=== PATIENT | female | born 1955 | race Caucasian/White ===

== ENCOUNTER 2017-08-28 13:16 | Outpatient (CLI) | payer BC ==
[2017-08-28 14:46] LABS: Hemoglobin 13.4 g/dL (12.0-16.0); Mean Corpuscular HGB CONC 33.9 g/dL (32.0-36.0); Mean Corpuscular Hemoglobin 32.1 pg (27.0-31.0); Mean Corpuscular Volume 94.9 fl (81.0-99.0); Mean Platelet Volume 8.3 fL (7.4-10.4); Platelet Count 182 thou/uL (130-400); RBC Distribution Width 12.3 % (11.5-14.5); Red Blood Cell (RBC) Count 4.16 mill/uL (4.20-5.40)
[2017-08-28 15:08] LABS: PTT 24.7 SEC (22.9-36.1); Prothrombin Time 12.8 SEC (12.0-14.7)
[2017-08-28 15:10] LABS: Anion Gap 10 mmol/L (10-20); BUN (Urea Nitrogen) 14 mg/dL (9.8-20.1); Calc. Creatinine Clearance 0 mL/min (70-130); Calcium 9.3 mg/dL (7.8-10.44); Carbon Dioxide 29 mmol/L (23-31); Chloride 105 mmol/L (98-107); Estimated GFR-MDRD 84; Glucose 80 mg/dL (80-115); Potassium 4.3 mmol/L (3.5-5.1); Sodium 140 mmol/L (136-145)
== END 2017-08-28 13:17 | disposition home or self-care (01) ==
LOC: LABBT 13:16
PROVIDERS: ATTEND Internal Medicine Cardiovascular Disease
DX: Z01.818 Encounter for other preprocedural examination (principal); I47.1 Supraventricular tachycardia
CPT/HCPCS: 80048; 85027; 85610; 85730; 93005; 93010

== ENCOUNTER → 2017-09-04 | Day surgery (SDC) | payer BC ==
[2017-08-28 13:37] VITALS: BMI 27.6
[~2017-09-04] MED LIST: Heparin 10,000 UNITS/1 ML VIAL ONE; Isoproterenol 0.2 MG/1 ML AMP ONE; Lidocaine 1% (PF) 30 ML VIAL ONE; Propofol 1,000 MG/100 ML VIAL IV ONE
--- NOTE | 2017-09-04 13:29 | OP ---
DATE OF PROCEDURE: 09/04/2017 ELECTROPHYSIOLOGY STUDY AND RADIOFREQUENCY ABLATION REFERRING PHYSICIAN: REASON FOR PROCEDURE: Paroxysmal supraventricular tachycardia. PROCEDURE: The patient received deep sedation with Anesthesia specialist. After adequate general sedation achieved, the left femoral venous area and the right femoral venous area was prepped and draped and anesthetized with subcutaneous lidocaine. With ultrasound guidance, a 6 and 8 Austrian short sheath was introduced on the left side and an 8 Austrian short sheath on the right femoral venous area. Through the left-sided access, a Decapolar an octapolar catheter was entered through the right atrium, His bundle, right ventricle also to the CS position. Pacing mapping and recording was performed in each location. During the burst pacing and extrastimulus testing we were able to induce a narrow complex supraventricular tachycardia with a baseline cycle length of 360 milliseconds with a very short VA conduction consistent with AV desire reentry tachycardia. With overdrive pacing entering the tachycardia and on stopping the pacing VA response was seen ruling out atrial tachycardia as the origin. The initiation of the tachycardia also was observed with excess to my testing with AV jump, indicating AV desire oriented tachycardia. Following that a 4 mm regular ablation catheter was then inserted in the right atrium and the right atrial map assessing this bundle map and CS map was obtained. The cough triangle was clearly delineated in the slow pathway area. Cautery was then used for about 90 seconds which admitted inducibility of AV node reentry tachycardia. No AV jump was observed. At this point, the isuprel was administered at 4 mcg per minute for about 10 minutes and repeated burst atrial pacing did not reinduce the arrhythmia. During the ablation, clear junctional rhythm was seen. The numerical findings; baseline cycle length sinus rhythm 907 milliseconds, IN 155, QRS 60, QT 401, AH 112, HV 46 milliseconds. AV Wenckebach cycle length was about 360 milliseconds. VA Wenckebach cycle length was 350 milliseconds. AV desire ERP was measured to 640 milliseconds with an AV jump was observed after which actually AV desire oriented tachycardia was induced. With VA pacing concentric retrograde ventricular activation was seen. After ablation, the HV interval did not change. The AV Wenckebach cycles was 340 milliseconds. AV desire ERP 16/250 milliseconds with no obvious dual AV desire physiology seen after the ablation. Also burst atrial pacing that reduced the SVT. At the end of the case isuprel was stopped. The cardiac silhouette was checked on the end, which appears to have been unchanged. The patient tolerated the procedure well, no complication noted. The catheters were removed and the sheaths as well. Local pressure was used for hemostasis. CONCLUSION: 1. 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 2. Slow pathway ablation eliminates the inducibility AV desire reentrant tachycardia as well as the dual AV desire physiology. PLAN: Reduce the AV desire blocking agents as tolerated and routine followup. MTDD
== END ==
LOC: CCL 08:49
PROVIDERS: ATTEND Internal Medicine Cardiovascular Disease
DX: I47.1 Supraventricular tachycardia (principal); Z88.1 Allergy status to other antibiotic agents; Z79.82 Long term (current) use of aspirin; Z79.899 Other long term (current) drug therapy
CPT/HCPCS: 76942; 93613; 93623; 93653; C1730; C1769; J1644; J2001; J2704

== ENCOUNTER 2024-02-16 14:34 | Outpatient (CLI) | payer MEDICARE, OTHER | END 2024-02-16 14:35 | disposition home or self-care (01) | LOC: SCSRAD 14:34 | PROVIDERS: ATTEND Internal Medicine Rheumatology | DX: L40.50 Arthropathic psoriasis, unspecified (principal); M53.3 Sacrococcygeal disorders, not elsewhere classified; M19.09 Primary osteoarthritis, other specified site | CPT/HCPCS: 72202 ==